=== PATIENT | male | born 1990 | race Hispanic/Latino ===

== ENCOUNTER → 2020-07-30 | Day surgery (SDC) | payer BC, OTHER ==
[~2020-07-30] MED LIST: FENTANYL CITRATE/PF 100MCG/2 ML INJ ONE; HYOSCYAMINE 0.125 MG TAB ONE; METHIMAZOLE10 MG PO; METOPROLOL TART50 MG PO; MIDAZOLAM HCL 2 MG/2 ML VIAL ONE; PROPOFOL IV EMULSION 10 MG/ML 20 ML VIAL ONE
[2020-07-30 16:28] LABS: WBC,FECAL (FECAL LACTOFERRIN) NEGATIVE (NEGATIVE)
[2020-07-30 16:50] VITALS: BP 131/83
--- NOTE | 2020-07-30 21:43 | Operative Report ---
DATE OF PROCEDURE: 07/30/2020 SURGEON: Aniceto Das MD PROCEDURE: Colonoscopy with biopsies. INDICATIONS FOR COLONOSCOPY: Hematochezia, fecal urgency, and anal pain. MEDICATIONS: The patient was done under MAC, please see anesthesiologist's note. PROCEDURE IN DETAIL: With the patient in the left lateral decubitus position, a flexible fiberoptic Olympus colonoscope was inserted into the rectum with ease and advanced all the way to the cecum. Mucosa overlying the cecum appeared to be within normal limits. The ileocecal valve was intubated and the scope was advanced into the terminal ileum. Biopsies were obtained. The scope was then withdrawn back into the colon. It was then withdrawn slowly. Mucosa overlying the ascending and transverse colon grossly appeared to be within normal limits. Mild patchy inflammatory changes were noted in the left colon as well as in the rectum. Random biopsies were obtained. The scope was then retroflexed into the distal rectum and moderate-sized internal hemorrhoids were noted, none of which was actively bleeding. The scope was then straightened out and it was subsequently withdrawn after securing an adequate stool specimen that was sent for the appropriate stool studies. A small anal fissure was noted in the anal canal. IMPRESSION: 1. Mild patchy left-sided colitis. 2. Proctitis, mild. 3. Internal hemorrhoids, none actively bleeding. 4. Anal fissure. PLAN: Follow up histology. Follow up stool studies. Bentyl 20 mg one p.o. t.i.d. Anusol-HC suppositories b.i.d. x10 days and p.r.n. Check IBD panel, CRP, and sedimentation rate. Aniceto Das MD [facility] [place]/STEFANL /[id number] cc: Pablo Loomis III, MD
[2020-07-31 14:37] LABS: C DIFFICILE TOXIN A&B AMP PROB NEGATIVE (NEGATIVE)
== END | disposition home or self-care (01) ==
LOC: OR 12:14
PROVIDERS: ATTEND Internal Medicine Gastroenterology
DX: K51.50 Left sided colitis without complications (principal); K62.89 Other specified diseases of anus and rectum; K64.8 Other hemorrhoids; K60.2 Anal fissure, unspecified; Z01.812 Encounter for preprocedural laboratory examination; Z11.59 Encounter for screening for other viral diseases; Z68.29 Body mass index [BMI] 29.0-29.9, adult
CPT/HCPCS: 36415; 45380; 83630; 83993; 85651; 86140; 86256; 86671; 87045; 87177; 87328; 87493; J2250; J2704; J3010; U0002